=== PATIENT | female | born 1995 | race Caucasian/White ===

== ENCOUNTER 2018-05-27 09:31 | Emergency (ER) | payer OTHER ==
[2018-05-27] MEDS ORDERED: DEXAMETHASONE 10 MG/ML VIAL PO STA (09:40)
[2018-05-27 09:44] VITALS: BP 161/89
--- NOTE | 2018-05-27 09:47 | ED Physician Documentation ---
PD HPI URI - Stated complaint Stated Complaint: SORE THROAT/CONGESTION/BODY ACHES - Chief complaint Chief Complaint: Heent - History obtained from History obtained from: Patient - History of Present Illness Timing - onset: How many days ago (4) Timing duration: Days (4) Timing details: Gradual onset Pain level max: 7 Pain level now: 5 Associated symptoms: Fever, Chills, Nasal congestion, Sore throat. No: Rhinorrhea, Dry cough, Productive cough Contributing factors: Sick contact Improves by: Rest, Medication (aleve) Worsened by: Other (swallowing) Recently seen: Clinic (seen at [facility] for same, given aleve and pseudoephedrine. States feeling worse) Review of Systems Nose: reports: Congestion Throat: reports: Sore throat GI: denies: Vomiting, Diarrhea : denies: Dysuria, Frequency, Hesitancy, Now EGA Skin: denies: Rash Musculoskeletal: denies: Neck pain, Back pain Neurologic: denies: Focal weakness, Numbness, Headache PD PAST MEDICAL HISTORY - Past Medical History Past Medical History: No - Past Surgical History Past Surgical History: No - Present Medications Home Medications: Ambulatory Orders Medication Instructions Recorded Confirmed Hydrocodone/Acetaminophen 1 - 2 each PO Q6H PRN #10 tablet 05/27/18 [Hydrocodon-Acetaminophen 5-325] Ondansetron Odt [Zofran] 4 mg TL Q6H PRN #10 tablet 05/27/18 - Allergies Allergies/Adverse Reactions: Allergies Allergy/AdvReac Type Severity Reaction Status Date / Time No Known Drug Allergies Allergy Verified 05/27/18 09:44 - Living Situation Living Arrangement: reports: At home - Social History Does the pt have substance abuse?: No - Family History Family history: reports: Non contributory PD ED PE NORMAL - Vitals Vital signs reviewed: Yes - General General: Alert and oriented X 3, No acute distress, Well developed/nourished - HEENT HEENT: PERRL, Ears normal, Moist mucous membranes, Other (Moderate posterior pharyngeal erythema without tonsillar exudates. Uvula midline. Normal phonation. No trismus) - Neck Neck: Supple, no meningeal sign, No adenopathy - Cardiac Cardiac: RRR, Strong equal pulses - Respiratory Respiratory: No respiratory distress, Clear bilaterally - Abdomen Abdomen: Soft, Non tender, Non distended - Derm Derm: Warm and dry, No rash - Extremities Extremities: No edema - Neuro Neuro: Alert and oriented X 3 - Psych Psych: Normal mood, Normal affect Results - Vitals Vitals: Vital Signs - 24 hr 05/27/18 09:42 Temperature 36.6 C Heart Rate 133 H Respiratory 20 Rate Blood Pressure 161/89 H O2 Saturation 100 Oxygen O2 Source Room air - Labs Labs: Laboratory Tests 05/27/18 05/27/18 09:45 09:45 Influenza A (Rapid) Negative Influenza B (Rapid) Negative Group A Strep Rapid Negative PD MEDICAL DECISION MAKING - ED course Complexity details: reviewed results, re-evaluated patient, considered differential, d/w patient ED course: Patient is well appearing, non-toxic. Afebrile. Tolerating PO without diff. Negative rapid strep. Negative influenza swab. Feels better after dexamethasone. Will continue supportive care and follow-up with her doctor. Patient counseled regarding signs and symptoms for which I believe and urgent re-evaluation would be necessary. Patient with good understanding of and agreement to plan and is comfortable going home at this time This document was made in part using voice recognition software. While efforts are made to proofread this document, sound alike and grammatical errors may occur. Departure - Departure Disposition: 01 Home, Self Care Clinical Impression: Acute viral syndrome Condition: Good Instructions: ED Viral Syndrome Follow-Up: JORDON HYMAN [Primary Care Provider] - Within 1 week Prescriptions: Hydrocodone/Acetaminophen [Hydrocodon-Acetaminophen 5-325] 1 - 2 each PO Q6H PRN #10 tablet PRN Reason: pain Ondansetron Odt [Zofran] 4 mg TL Q6H PRN #10 tablet PRN Reason: Nausea / Vomiting Comments: Your strep test and flu test are both negative today. Go home and rest. drink plenty of fluids. Return if you worsen Do not drink alcohol or drive while on narcotic pain medicine. Note that many narcotic pain relievers also contain tylenol/acetaminophen. Please ensure that your total dose of acetaminophen from all sources does not exceed 3 grams (3000mg) per day. You may constipated on this medication, take a stool softener such as "Colace" twice a day while you are on it. Also recommend a [id number] laxative such as senna or MiraLAX any day that you do not have a bowel movement. If you received narcotic pain medication in the emergency department, do not drive or operate machinery for the next 24 hours. Forms: Activity restrictions Discharge Date/Time: 05/27/18 10:31
[2018-05-27] MEDS ORDERED: CHERRY SYRUP 10 ML UDC PO ONE (10:07)
== END 2018-05-27 10:31 | disposition home or self-care (01) ==
LOC: ED 09:31
DX: B34.9 Viral infection, unspecified (principal)
CPT/HCPCS: 87070; 87275; 87276; 87430; 99283; A9270

== ENCOUNTER 2018-05-28 20:04 | Emergency (ER) | payer OTHER ==
[2018-05-28] MEDS ORDERED: ALBUTEROL NEB 2.5 MG/3 ML INH STA (20:30)
--- NOTE | 2018-05-28 20:36 | ED Physician Documentation ---
PD HPI URI - Stated complaint Stated Complaint: SORE THROAT/NO VOICE - Chief complaint Chief Complaint: Heent - History obtained from History obtained from: Patient - History of Present Illness Timing - onset: How many days ago (5) Timing duration: Days (5) Timing details: Gradual onset Pain level max: 6 Pain level now: 4 Associated symptoms: Chills, Sore throat, Dry cough, Dyspnea Contributing factors: Sick contact. No: Immunocompromised Improves by: Rest Worsened by: Other (swallowing, states chest is feeling tight today too) Similar symptoms before: Diagnosis (viral syndrome) Recently seen: Emergency Dept (yesterday for same. negative strep and influenza. seen at [facility] before that and dx with viral illness as well.) - Additional information Additional information: states she feels like her chest is tight today and she is losing her voice. Review of Systems Constitutional: denies: Fever Throat: reports: Sore throat Cardiac: denies: Palpitations Respiratory: reports: Dyspnea, Cough GI: denies: Abdominal Pain, Vomiting, Diarrhea : denies: Dysuria, Frequency, Hesitancy, Now EGA Skin: denies: Rash Musculoskeletal: denies: Neck pain, Back pain Neurologic: denies: Headache PD PAST MEDICAL HISTORY - Past Medical History Past Medical History: No - Past Surgical History Past Surgical History: No HEENT: Tonsil/Adenoidectomy - Present Medications Home Medications: Ambulatory Orders Medication Instructions Recorded Confirmed Hydrocodone/Acetaminophen 1 - 2 each PO Q6H PRN #10 tablet 05/27/18 [Hydrocodon-Acetaminophen 5-325] Ondansetron Odt [Zofran] 4 mg TL Q6H PRN #10 tablet 05/27/18 predniSONE [Prednisone] 40 mg PO DAILY #10 tablet 05/28/18 - Allergies Allergies/Adverse Reactions: Allergies Allergy/AdvReac Type Severity Reaction Status Date / Time No Known Drug Allergies Allergy Verified 05/28/18 20:10 - Social History Does the pt smoke?: No Smoking Status: Never smoker Does the pt drink ETOH?: No Does the pt have substance abuse?: No - Immunizations Immunizations are current?: Yes PD ED PE NORMAL - Vitals Vital signs reviewed: Yes - General General: Alert and oriented X 3, No acute distress - HEENT HEENT: PERRL, Ears normal, Moist mucous membranes, Pharynx benign - Neck Neck: Supple, no meningeal sign, No adenopathy - Cardiac Cardiac: RRR, Strong equal pulses - Respiratory Respiratory: No respiratory distress, Clear bilaterally - Abdomen Abdomen: Soft, Non tender, Non distended - Back Back: No CVA TTP, No spinal TTP - Derm Derm: Warm and dry, No rash - Neuro Neuro: Alert and oriented X 3 - Psych Psych: Normal mood, Normal affect Results - Vitals Vitals: Vital Signs - 24 hr 05/28/18 05/28/18 05/28/18 20:07 20:47 21:10 Temperature 36.8 C 36.4 C L Heart Rate 76 75 68 Respiratory 16 18 16 Rate Blood Pressure 123/94 H 128/81 H O2 Saturation 99 99 Oxygen O2 Source Room air - Rads (name of study) cxr Radiology: Prelim report reviewed, EMP read contemporaneously, See rad report (no acute disease) PD MEDICAL DECISION MAKING - ED course Complexity details: reviewed old records, reviewed results, re-evaluated patient, considered differential, d/w patient ED course: 22-year-old female with what appears to be an acute viral syndrome. Negative rapid strep and flu swab yesterday. She is well-appearing, nontoxic. No acute findings on chest x-ray. Will place her on a steroid burst and see if this helps her pharyngitis symptoms. Patient counseled regarding signs and symptoms for which I believe and urgent re-evaluation would be necessary. Patient with good understanding of and agreement to plan and is comfortable going home at this time This document was made in part using voice recognition software. While efforts are made to proofread this document, sound alike and grammatical errors may occur. Departure - Departure Disposition: 01 Home, Self Care Clinical Impression: Acute viral syndrome Condition: Good Instructions: ED Viral Syndrome Follow-Up: JORDON HYMAN [Primary Care Provider] - Within 1 week Prescriptions: predniSONE [Prednisone] 40 mg PO DAILY #10 tablet Comments: Drink plenty of fluids and rest. Return if you worsen. Discharge Date/Time: 05/28/18 21:11
[2018-05-28 21:11] VITALS: BP 128/81
--- NOTE | 2018-05-28 21:15 | XRAY Report ---
Reason: cough, fever Procedure Date: 05/28/2018 Accession Number: [id number] / [id number] Procedure: XR - Chest 2 View X-Ray CPT Code: 01912 FULL RESULT: EXAM: CHEST RADIOGRAPHY EXAM DATE: 05/28/2018 08:52 PM. CLINICAL HISTORY: Cough, fever. COMPARISON: None. TECHNIQUE: 2 views. FINDINGS: Lungs/Pleura: No focal opacities evident. No pleural effusion. No pneumothorax. Normal volumes. Mediastinum: Heart and mediastinal contours are unremarkable. Other: None. IMPRESSION: Normal 2-view chest radiography. [facility]
== END 2018-05-28 21:11 | disposition home or self-care (01) ==
LOC: ED 20:04
DX: B34.9 Viral infection, unspecified (principal)
CPT/HCPCS: 71046; 94640; 99283

== ENCOUNTER 2018-10-09 21:50 | Emergency (ER) | payer OTHER ==
[2018-10-09] MEDS ORDERED: SULFAM/TRIM 800/160 Prepack 2 PO ONE (22:41)
[2018-10-10 00:17] VITALS: BP 127/93
--- NOTE | 2018-10-10 00:18 | ED Physician Documentation ---
PD HPI SKIN - Stated complaint Stated Complaint: LUMP ON GROIN - Chief complaint Chief Complaint: Abd Pain - History obtained from History obtained from: Patient - History of Present Illness Timing - onset: How many days ago (4) Timing - duration: Days (4) Timing - details: Gradual onset, Still present Location: RLE Quality / character: Painful, Swelling, Draining Similar symptoms before: Has not had sx before Recently seen: Not recently seen - Additional information Additional information: 23 y/o female with a red lump on the inside of the right upper thigh has had an increase in size and she has been able to express pus. Review of Systems Constitutional: denies: Fever Eyes: denies: Decreased vision Ears: denies: Ear pain Nose: denies: Congestion Throat: denies: Sore throat Cardiac: denies: Chest pain / pressure, Palpitations Respiratory: denies: Dyspnea, Cough GI: denies: Nausea, Vomiting : denies: Dysuria, Frequency Skin: reports: Lesions Musculoskeletal: reports: Extremity pain. denies: Neck pain, Back pain PD PAST MEDICAL HISTORY - Past Medical History Past Medical History: Yes Psych: Depression, Anxiety - Past Surgical History Past Surgical History: No HEENT: Tonsil/Adenoidectomy - Present Medications Home Medications: Ambulatory Orders Medication Instructions Recorded Confirmed Sertraline [Zoloft] 50 mg PO DAILY 10/09/18 10/09/18 Sulfamethoxazole/Trimethoprim 1 each PO BID #14 tablet 10/10/18 [Sulfamethoxazole-Tmp Ds Tablet] - Allergies Allergies/Adverse Reactions: Allergies Allergy/AdvReac Type Severity Reaction Status Date / Time No Known Drug Allergies Allergy Verified 10/09/18 21:55 - Social History Does the pt smoke?: No Smoking Status: Never smoker Does the pt drink ETOH?: Yes Does the pt have substance abuse?: No - Immunizations Immunizations are current?: Yes - POLST Patient has POLST: No PD ED PE NORMAL - Vitals Vital signs reviewed: Yes (hypertensive ) - General General: Alert and oriented X 3, No acute distress, Well developed/nourished - HEENT HEENT: Atraumatic, PERRL, EOMI - Respiratory Respiratory: No respiratory distress - Derm Derm: Normal color, Warm and dry, No rash - Extremities Extremities: No deformity, No edema, Other (There is a flat 1cm round erythematous papule that is tender and without fluctuance. It is firm and there is no current drainage. ) Results - Vitals Vitals: Vital Signs - 24 hr 10/09/18 10/09/18 21:51 22:30 Temperature 36.3 C L Heart Rate 62 102 H Respiratory 16 16 Rate Blood Pressure 138/72 H 127/93 H O2 Saturation 99 98 Oxygen O2 Source Room air PD MEDICAL DECISION MAKING - ED course Complexity details: considered differential, d/w patient ED course: An early abscess without fluctuance. Departure - Departure Disposition: 01 Home, Self Care Clinical Impression: Abscess Condition: Stable Follow-Up: JORDON HYMAN [Primary Care Provider] - Prescriptions: Sulfamethoxazole/Trimethoprim [Sulfamethoxazole-Tmp Ds Tablet] 1 each PO BID #14 tablet Discharge Date/Time: 10/09/18 22:30
== END 2018-10-09 22:30 | disposition home or self-care (01) ==
LOC: ED 21:50
DX: L02.415 Cutaneous abscess of right lower limb (principal)
CPT/HCPCS: 99283

== ENCOUNTER 2018-12-26 18:29 | Emergency (ER) | payer OTHER ==
--- NOTE | 2018-12-26 21:05 | ED Physician Documentation ---
PD HPI LOWER EXT INJURY - Stated complaint Stated Complaint: L LEG INJ - Chief complaint Chief Complaint: Ext Problem - History obtained from History obtained from: Patient - History of Present Illness PD HPI LOW EXT INJURY LOCATION: Left, Lower leg Type of injury: Blunt / blow (she was kickboxing and kicking at pad target held by another person. The other let down the kicking pad and the patient then kicked into his chest protector, which had a hard edge to it. Onset pain at anterolateral left lower leg. Pain with walking and ROM of the ankle.) Timing - onset: Today Timing - details: Abrupt onset, Still present Worsened by: Moving, Palpating, Other (everting and dorsiflexing the foot. Pain not at the ankle but in lateral mid lower leg.) Associated symptoms: Swelling. No: Weakness, Numbness Similar symptoms before: Has not had sx before Recently seen: Not recently seen Review of Systems Skin: denies: Abrasion (s), Laceration (s) Neurologic: denies: Focal weakness, Numbness PD PAST MEDICAL HISTORY - Past Medical History Past Medical History: Yes Psych: Depression, Anxiety - Past Surgical History Past Surgical History: No HEENT: Tonsil/Adenoidectomy - Present Medications Home Medications: Ambulatory Orders Medication Instructions Recorded Confirmed Sertraline [Zoloft] 50 mg PO DAILY 10/09/18 10/09/18 Sulfamethoxazole/Trimethoprim 1 each PO BID #14 tablet 10/10/18 [Sulfamethoxazole-Tmp Ds Tablet] - Allergies Allergies/Adverse Reactions: Allergies Allergy/AdvReac Type Severity Reaction Status Date / Time No Known Drug Allergies Allergy Verified 12/26/18 18:55 - Social History Does the pt smoke?: No Smoking Status: Never smoker Does the pt drink ETOH?: Yes Does the pt have substance abuse?: No - Immunizations Immunizations are current?: Yes - POLST Patient has POLST: No PD ED PE NORMAL - Vitals Vital signs reviewed: Yes - General General: Alert and oriented X 3, No acute distress, Well developed/nourished - Derm Derm: Normal color, Warm and dry - Extremities Extremities: Other (The anterolateral aspect of the left mid lower leg shows local area of tenderness and swelling. There is no bruising or laceration. There is some tenderness over the fibular bone. Normal sensation pulses color and capillary refill in the toes. It does hurt her for dorsiflexion and eversion of the foot against resistance.) Results - Vitals Vitals: Vital Signs - 24 hr 12/26/18 12/26/18 18:52 21:52 Temperature 37.3 C 36.5 C Heart Rate 82 61 Respiratory 16 15 Rate Blood Pressure 130/79 110/81 H O2 Saturation 99 100 Oxygen O2 Source Room air - Rads (name of study) left tib/fib Radiology: Prelim report reviewed (no fractures), See rad report Departure - Departure Disposition: 01 Home, Self Care Clinical Impression: Contusion, lower leg Qualifiers: Encounter type: initial encounter Laterality: left Qualified Code(s): S80.12XA - Contusion of left lower leg, initial encounter Condition: Stable Record reviewed to determine appropriate education?: Yes Instructions: ED Contusion Lower Ext Comments: Ibuprofen or naproxen as needed for pain. Add Tylenol if needed. Ice rest and elevate the lower leg tonight and tomorrow to reduce swelling. There is no signs of fractures on x-ray so this can be treated with an ankle brace to reduce muscle motion. Crutches as needed for partial or no weightbearing and progress to full weightbearing and activity as tolerated with continuing ankle brace for a week or so. Recheck if not better during that time. Discharge Date/Time: 12/26/18 22:29
[2018-12-26 21:52] VITALS: BP 110/81
--- NOTE | 2018-12-26 21:54 | XRAY Report ---
Reason: L leg pain s/p kick metal Procedure Date: 12/26/2018 Accession Number: [id number] / [id number] Procedure: XR - Tib/Fib LT CPT Code: FULL RESULT: EXAM: LEFT TIBIA/FIBULA RADIOGRAPHY EXAM DATE: 12/26/2018 09:42 PM. CLINICAL HISTORY: L leg pain s/p kick metal. COMPARISON: None. TECHNIQUE: 2 views. FINDINGS: Bones: Normal. No fracture or bone lesion. Joints: The visualized knee and ankle joints are normal. No effusions. Soft Tissues: Normal. No soft tissue swelling. IMPRESSION: Normal tibia/fibula radiography. [facility]
== END 2018-12-26 22:29 | disposition home or self-care (01) ==
LOC: ED 18:29
DX: S80.12XA Contusion of left lower leg, initial encounter (principal); W21.89XA Striking against or struck by other sports equipment, initial encounter; Y93.79 Activity, other specified sports and athletics; Y92.89 Other specified places as the place of occurrence of the external cause
CPT/HCPCS: 99282; 99283

== ENCOUNTER 2019-01-01 19:16 | Emergency (ER) | payer OTHER ==
--- NOTE | 2019-01-01 21:52 | ED Physician Documentation ---
History of Present Illness - Stated complaint Stated Complaint: NAVAL PIERCING INFECTION - Chief complaint Chief Complaint: Wound - History obtained from History obtained from: Patient - Additonal information Additional information: Patient is a previously healthy 23-year-old female presenting with bellybutton piercing that she believes to be infected. Patient reports the initial piercing was performed several weeks ago and now she has erythema and purulent drainage, as well as tenderness to the top part of the piercing and skin has begun to encroach around the piercing. Patient reports that she is cleaning it appropriately. No fever, vomiting, abdominal pain otherwise, urinary or stool changes, or other complaints. No other improving or worsening factors noted. Review of Systems Constitutional: denies: Fever Skin: reports: Rash PD PAST MEDICAL HISTORY - Past Medical History Past Medical History: Yes Psych: Depression, Anxiety - Past Surgical History Past Surgical History: No HEENT: Tonsil/Adenoidectomy - Present Medications Home Medications: Ambulatory Orders Medication Instructions Recorded Confirmed Cephalexin [Keflex] 500 mg PO Q6H #28 capsule 01/01/19 - Allergies Allergies/Adverse Reactions: Allergies Allergy/AdvReac Type Severity Reaction Status Date / Time No Known Drug Allergies Allergy Verified 01/01/19 19:29 - Social History Does the pt smoke?: No Smoking Status: Never smoker Does the pt drink ETOH?: Yes Does the pt have substance abuse?: No - Immunizations Immunizations are current?: Yes - POLST Patient has POLST: No PD ED PE NORMAL - Vitals Vital signs reviewed: Yes - General General: Alert and oriented X 3, No acute distress, Well developed/nourished - HEENT HEENT: Atraumatic, Moist mucous membranes - Neck Neck: Supple, no meningeal sign - Abdomen Abdomen: Soft, Non tender, Non distended - Derm Derm: Warm and dry. No: Normal color (Bellybutton piercing intact with upper piercing slightly being overgrown by skin but able to be moved with ileus. Mild erythema to this area with no purulent discharge, fluctuance, induration noted. Slightly tender to the touch.) - Extremities Extremities: No deformity, No tenderness to palpate - Neuro Neuro: Alert and oriented X 3, No motor deficit, No sensory deficit - Psych Psych: Normal mood, Normal affect Results - Vitals Vitals: Vital Signs - 24 hr 01/01/19 19:24 Temperature 36.6 C Heart Rate 71 Respiratory 16 Rate Blood Pressure 134/109 H O2 Saturation 100 Oxygen O2 Source Room air PD MEDICAL DECISION MAKING - ED course Complexity details: considered differential, d/w patient ED course: Patient is adamant that she does not want to remove piercing. Discussed appropriate wound care, as well as starting of antibiotics. Other supportive cares, return precautions, and follow-up. Otherwise, feel that patient is safe to discharge home with no further work-up. Patient voiced understanding and is comfortable with discharge plan. Departure - Departure Disposition: 01 Home, Self Care Clinical Impression: Cellulitis Condition: Good Instructions: ED Infec Skin Cellulitis Follow-Up: your,doctor [Other] - Within 3 Days Prescriptions: Cephalexin [Keflex] 500 mg PO Q6H #28 capsule Comments: Please keep piercing clean and dry. Please take in a biotics as prescribed and recommend taking them with a small amount of food to avoid upset stomach. Please follow-up with primary care physician in next 2 to 3 days and return to ED sooner if experience worsening symptoms or have other concerns.
[2019-01-01 22:28] VITALS: BP 118/66
== END 2019-01-01 22:27 | disposition home or self-care (01) ==
LOC: ED 19:16
DX: L03.311 Cellulitis of abdominal wall (principal)
CPT/HCPCS: 99282; 99284

== ENCOUNTER 2020-10-16 16:33 | Emergency (ER) | payer OTHER ==
--- OUTSIDE RECORDS SUMMARY | 2020-10-16 17:00 | EXTERNAL MEDICAL SUMMARY RPT | Continuity of Care Document ---
:1995 Demographics Phone Unavailable Preferred Language Unknown Marital Status Unknown Hinduism Affiliation Unknown Race Unknown Ethnic Group Unknown Author Organization [facility] Address [address] [place] [address] Phone Allergies Encounters Medications Problems Results
[2020-10-16 17:13] LABS: BILIRUBIN,URINE NEGATIVE (NEGATIVE); GLUCOSE, URINE (UA) NEGATIVE (NEGATIVE); KETONES,URINE (UA) NEGATIVE (NEGATIVE); LEUKOCYTE ESTERASE, URINE SMALL (NEGATIVE); NITRITE,URINE NEGATIVE (NEGATIVE); OCCULT BLOOD,URINE TRACE-INTA (NEGATIVE); PROTEIN,URINE NEGATIVE (NEGATIVE); UROBILINOGEN,URINE 0.2 (NORMAL) E.U./dL (NORMAL)
[2020-10-16 17:16] LABS: CLARITY,URINE CLEAR (CLEAR); HCG UR QUAL NEGATIVE
[2020-10-16 17:23] LABS: BACTERIA,URINE Rare /HPF (None Seen); RBC,URINE 0-5 /HPF (0-5); SQUAMOUS EPITHELIAL CELL,UR FEW Squamous (<= Few)
[2020-10-16] MEDS ORDERED: FLUCONAZOLE 100 MG TABLET PO STA (18:52)
--- NOTE | 2020-10-16 18:53 | ED Physician Documentation ---
History of Present Illness - Stated complaint Stated Complaint: FEMALE - Chief complaint Chief Complaint: General - History obtained from History obtained from: Patient - Additonal information Additional information: Patient comes emergency department chief complaint of heavier vaginal discharge with burning and itching several days after starting Augmentin for a dental infection. Patient states that she has not had any fevers. She is sexually monogamous with her significant other is adamant that there is no chance of having an STD. Patient denies pain as a feature of her symptoms. No other complaints at this time. Pt is not known to be . Review of Systems Ten Systems: 10 systems reviewed and negative Constitutional: reports: Reviewed and negative Eyes: reports: Reviewed and negative Ears: reports: Reviewed and negative Nose: reports: Reviewed and negative Throat: reports: Reviewed and negative Cardiac: reports: Reviewed and negative Respiratory: reports: Reviewed and negative GI: reports: Reviewed and negative : reports: Reviewed and negative Skin: reports: Reviewed and negative Musculoskeletal: reports: Reviewed and negative Neurologic: reports: Reviewed and negative Psychiatric: reports: Reviewed and negative Endocrine: reports: Reviewed and negative Immunocompromised: reports: Reviewed and negative PD PAST MEDICAL HISTORY - Past Medical History Past Medical History: Yes Psych: Depression, Anxiety - Past Surgical History Past Surgical History: No HEENT: Tonsil/Adenoidectomy - Present Medications Home Medications: Ambulatory Orders Medication Instructions Recorded Confirmed cephALEXin [Keflex] 500 mg PO Q6H #28 capsule 01/01/19 Fluconazole [Diflucan] 1 tablet PO ONCE 1 Days #1 tablet 10/16/20 - Allergies Allergies/Adverse Reactions: Allergies Allergy/AdvReac Type Severity Reaction Status Date / Time No Known Drug Allergies Allergy Verified 10/16/20 16:45 - Social History Does the pt smoke?: No Smoking Status: Never smoker Does the pt drink ETOH?: Yes Does the pt have substance abuse?: No - Immunizations Immunizations are current?: Yes - POLST Patient has POLST: No PD ED PE NORMAL - Vitals Vital signs reviewed: Yes - General General: Alert and oriented X 3, No acute distress - HEENT HEENT: Atraumatic, PERRL, EOMI, Moist mucous membranes - Neck Neck: Supple, no meningeal sign - Respiratory Respiratory: No respiratory distress - Abdomen Abdomen: Soft, Non tender, Non distended - Female Female : Other (Moderate white, thick, nonmalodorous vaginal discharge without blood. No cervical lesions.) - Back Back: No CVA TTP - Derm Derm: Normal color, Warm and dry, No rash - Extremities Extremities: No deformity - Neuro Neuro: Alert and oriented X 3 - Psych Psych: Normal mood, Normal affect Results - Vitals Vitals: Oxygen O2 Source Room air - Labs Labs: Microbiology 10/16/20 16:53 Urine Culture - Final Urine,Clean Catch Less Than 10,000 COLONIES/ML UROGENITAL KIMMY Laboratory Tests 10/16/20 16:53 Urine Color YELLOW Urine Clarity CLEAR Urine pH 7.0 Ur Specific [place] 1.020 Urine Protein NEGATIVE Urine Glucose (UA) NEGATIVE Urine Ketones NEGATIVE Urine Occult Blood TRACE-INTA Urine Nitrite NEGATIVE Urine Bilirubin NEGATIVE Urine Urobilinogen 0.2 (NORMAL) Ur Leukocyte Esterase SMALL H Urine RBC 0-5 Urine WBC 4-5 Ur Squamous Epith Cells FEW Squamous Urine Bacteria Rare Ur Microscopic Review INDICATED Urine Culture Comments INDICATED Urine HCG, Qual NEGATIVE PD MEDICAL DECISION MAKING - ED course Complexity details: reviewed results, re-evaluated patient, considered differential, d/w patient ED course: The patient symptoms and the fact that she was on antibiotics pointed most probably to a vaginal yeast infection. I discussed this with the patient and she was started on Diflucan for this. I have given her a prescription for a repeat dose of Diflucan to be taken tomorrow the next day, and we have discussed indications for follow-up. Departure - Departure Disposition: 01 Home, Self Care Clinical Impression: Vaginal candidiasis Condition: Stable Instructions: ED Vaginal Infec Fungal Ronit Prescriptions: Fluconazole [Diflucan] 1 tablet PO ONCE 1 Days #1 tablet Comments: Please take the second dose of Diflucan either tomorrow or the next day. If you wish, you may also use an [id number] intravaginal preparation, but most likely, you will not need this. If your swab comes back positive for bacterial vaginosis in addition, we will call you at home to arrange for the appropriate prescription for this. Discharge Date/Time: 10/16/20 19:15
[2020-10-16 19:37] VITALS: BP 118/84
== END 2020-10-16 19:15 | disposition home or self-care (01) ==
LOC: ED 16:33
DX: B37.3 Candidiasis of vulva and vagina (principal)
CPT/HCPCS: 81001; 81025; 87086; 99283; 99284; A9270; 81003